=== PATIENT | male | born 1985 | race Caucasian/White ===

== ENCOUNTER 2017-02-14 17:00 | Emergency (ER) | payer BC ==
[~2017-02-14] VITALS: Ht 167.6 cm; Wt 63.5 kg
== END 2017-02-14 18:01 | disposition short-term general hospital (02) ==
LOC: ER 17:00
DX: K08.89 Other specified disorders of teeth and supporting structures (principal); J32.9 Chronic sinusitis, unspecified; Z88.0 Allergy status to penicillin